=== PATIENT | male | born 1955 | race Caucasian/White ===

== ENCOUNTER → 2023-06-14 14:17 | Outpatient (REF) | payer MEDICARE, BC, SELFPAY | LOC: RAD 14:17 | PROVIDERS: ATTENDING PHYSICIAN Internal Medicine; FAMILY PHYSICIAN Family Medicine | DX: M25.50 Pain in unspecified joint (principal); M25.60 Stiffness of unspecified joint, not elsewhere classified | CPT/HCPCS: 73130; 73630 ==

== ENCOUNTER → 2023-07-27 14:30 | Outpatient (REF) | payer MEDICARE, BC, SELFPAY | LOC: MRI 3T 14:30 | PROVIDERS: ATTENDING PHYSICIAN Urology; FAMILY PHYSICIAN Family Medicine | DX: C61 Malignant neoplasm of prostate (principal) | CPT/HCPCS: 72197; A9575 ==

== ENCOUNTER → 2024-05-09 14:22 | Outpatient (REF) | payer MEDICARE, BC, SELFPAY | LOC: RAD 14:22 | DX: M79.662 Pain in left lower leg (principal) | CPT/HCPCS: 93970 ==

== ENCOUNTER → 2024-08-03 10:50 | Outpatient (REF) | payer MEDICARE, BC, SELFPAY | LOC: RAD 10:50 | PROVIDERS: ATTENDING PHYSICIAN Family Medicine; FAMILY PHYSICIAN Family Medicine | DX: R50.9 Fever, unspecified (principal) | CPT/HCPCS: 71046 ==

== ENCOUNTER → 2024-08-13 15:19 | Outpatient (REF) | payer MEDICARE, BC, SELFPAY ==
[2024-08-13 16:17] LABS: % Basophils 0.3 % (0-2); % Eosinophils 1.4 % (0-6); % Immature Granulocytes 0.3 % (0-0.5); % Lymphocytes 15.7 % (20.5-51.1); % Monocytes 8.5 % (1.7-9.3); % Neutrophils 73.8 % (42.2-75.2); Absolute Eosinophils 0.1 10^3/uL (0-0.7); Absolute Lymphocytes 1.4 10^3/uL (1.2-3.4); Absolute Monocytes 0.7 10^3/uL (0.1-0.6); Absolute Neutrophils 6.4 10^3/uL (1.4-6.5); Hematocrit 29.3 % (39.0-52.0); Hemoglobin 9.8 g/dL (13.0-18.0); Mean Corp Hgb Conc. 33.4 g/dL (33.0-37.0); Mean Corpuscular Hgb 29.9 pg (27.0-31.0); Mean Corpuscular Volume 89.3 fL (80.0-94.0); Mean Platelet Volume 9.8 fL (7.4-10.4); Nucleated Red Blood Cells % 0 % (-); Platelet Count 403 10^3/uL (130-400); Red Blood Cell Count 3.28 10^6/uL (4.70-6.10); White Blood Cell Count 8.6 10^3/uL (4.8-10.8)
[2024-08-13 16:33] LABS: ALT (SGPT) 20 U/L (0-50); AST (SGOT) 17 U/L (17-59); Albumin 3.4 g/dl (3.5-5.0); Alkaline Phosphatase 72 U/L (38-126); Blood Urea Nitrogen 32 mg/dl (9-20); Calcium 9.4 mg/dl (8.4-10.2); Carbon Dioxide 28 mmol/L (22-30); Chloride 107 mmol/L (98-107); Creatine Phosphokinase 73 U/L (55-170); Glucose 107 mg/dl (70-99); Potassium 4.3 mmol/L (3.5-5.1); Sodium 141 mmol/L (135-145); eGFR > 60.00
[2024-08-13 16:58] LABS: Vitamin D, 25-OH*** 44.5 ng/mL (30-80)
[2024-08-13 17:03] LABS: Erythrocyte Sed Rate 75 mm/hour (0-20)
[2024-08-13 17:11] LABS: TSH Reflex To Free T4 2.59 uIU/ml (0.47-4.68)
[2024-08-14 15:25] LABS: Lyme Antibody Screen, EIA Negative (Negative)
[2024-08-15 11:14] LABS: Rheumatoid Agglutinin Positive (<10 IU)
[2024-08-15 11:20] LABS: Rheumatoid Agg. Semi-quant 2048 IU
[2024-08-16 01:54] LABS: CCP Antibody IgG/IgA 5 Units (0-19)
[2024-08-16 02:06] LABS: ANA, IgG Reflex to HEp-2 None Detected (None Detected)
[2024-08-16 02:53] LABS: SSA 52 (Ro)(ENA) Ab, IgG 1 AU/mL (0-40); SSA 60 (Ro)(ENA) Ab, IgG 0 AU/mL (0-40); SSB (La)(ENA) Ab, IgG 0 AU/mL (0-40)
== END ==
LOC: REG 15:19
PROVIDERS: ATTENDING PHYSICIAN Family Medicine
DX: M25.50 Pain in unspecified joint (principal); M79.10 Myalgia, unspecified site; R53.83 Other fatigue; E55.9 Vitamin D deficiency, unspecified
CPT/HCPCS: 36415; 80053; 82306; 82550; 84443; 85025; 85652; 86038; 86140; 86200; 86235; 86430; 86431; 86618; 86747; 86780

== ENCOUNTER 2024-08-14 09:47 | Emergency (ER) | payer MEDICARE, BC, SELFPAY ==
[2024-08-14 09:49] VITALS: BP 135/79
[2024-08-14 10:45] VITALS: BMI 34.8
[2024-08-14 12:11] LABS: % Basophils 0.5 % (0-2); % Eosinophils 2.3 % (0-6); % Immature Granulocytes 0.4 % (0-0.5); % Lymphocytes 16.1 % (20.5-51.1); % Monocytes 9.3 % (1.7-9.3); % Neutrophils 71.4 % (42.2-75.2); Absolute Eosinophils 0.2 10^3/uL (0-0.7); Absolute Lymphocytes 1.2 10^3/uL (1.2-3.4); Absolute Monocytes 0.7 10^3/uL (0.1-0.6); Absolute Neutrophils 5.3 10^3/uL (1.4-6.5); Hematocrit 27.4 % (39.0-52.0); Hemoglobin 9.4 g/dL (13.0-18.0); Mean Corp Hgb Conc. 34.3 g/dL (33.0-37.0); Mean Corpuscular Hgb 30.4 pg (27.0-31.0); Mean Corpuscular Volume 88.7 fL (80.0-94.0); Mean Platelet Volume 9.9 fL (7.4-10.4); Nucleated Red Blood Cells % 0 % (-); Platelet Count 345 10^3/uL (130-400); Red Blood Cell Count 3.09 10^6/uL (4.70-6.10); Red Cell Dist. Width 11.2 % (11.5-14.5); White Blood Cell Count 7.4 10^3/uL (4.8-10.8)
[2024-08-14 12:19] LABS: Lactic Acid 0.8 mmol/L (0.7-2.0); Urine Albumin Negative (Neg - Trace); Urine Bilirubin Negative (Negative); Urine Character Clear (Clear); Urine Color Yellow; Urine Glucose Negative (Negative); Urine Ketone Negative (Negative); Urine Leukocyte Negative (Negative); Urine Nitrite Negative (Negative); Urine Occult Blood Negative (Negative); Urine Specific Gravity 1.015 (<1.030); Urine Urobilinogen Negative (Neg - 1+)
[2024-08-14 12:20] LABS: ALT (SGPT) 16 U/L (0-50); AST (SGOT) 16 U/L (17-59); Alkaline Phosphatase 63 U/L (38-126); Blood Urea Nitrogen 29 mg/dl (9-20); Carbon Dioxide 24 mmol/L (22-30); Chloride 109 mmol/L (98-107); Estimated Creatinine Clearance 88 ml/min; Glucose 106 mg/dl (70-99); Potassium 3.7 mmol/L (3.5-5.1); Sodium 140 mmol/L (135-145); Total Bilirubin 1.2 mg/dl (0.2-1.3); Total Protein 6.3 g/dl (6.3-8.2); eGFR > 60.00
--- NOTE | 2024-08-14 12:44 | ED.GENMED ---
History of Present Illness
General
Chief Complaint: Abnormal Lab Value
Time Seen by Provider: 08/14/24 10:46
History of Present Illness
History of Present Illness:
68-year-old male with history of hypertension, hyperlipidemia, prior history of prostate cancer presenting to the emergency department for concern of 2 weeks of fever. Patient has every day for the past 2 weeks he has had a low-grade temperature,
about 100. Also notes that he has had some pain in his upper extremity joints, however denies significant swelling or weakness. He does note a history of migraines and has had headaches as well, however denies any neck pain or visual changes. He
has been following with his primary care doctor check laboratory analysis as well as a Lyme screen. Lyme test was negative however ESR and CRP were checked, which were elevated yesterday. Patient denies any known sick contacts. He denies chest
pain or difficulty breathing, had outpatient negative chest x-ray. Denies any urinary symptoms, had outpatient negative urine test. Does note some constipation, but denies abdominal pain. Denies any recent travel out of the country. Denies
additional acute medical complaints
Past History
Past History
ED Past Medical History: HTN, Hypercholesterolemia and Other (Migraines)
ED Past Surgical History: Orthopedic and Tonsilectomy
Social History
Tobacco: Non-smoker
Alcohol: None
Drug: None
Personal:
Living: with family
Employment: Employed
Phy Exam
Physical Exam
Physical Exam:
General: Well-appearing, no clinical signs of dehydration, nontoxic and in no acute distress
HEENT: protecting airway
Neck: appears supple, no rigidity, no meningismus
CV: Normal heart rate, regular rhythm
Resp: No accessory muscle use, no increased work of breathing, lungs clear to auscultation bilaterally
Abd: Soft and non-distended, no tenderness to palpation
Extremities: No deformities, no swelling, no erythema. Prior evidence of left pneumothorax. No erythema or warmth. No pain with range of motion. No pain with any palpation
Neuro: alert, no focal neurologic deficit
: deferred
Rectal: deferred
Psych: Normal affect
Skin: Intact
Course
Orders/Labs/Results
Orders:
Orders
08/14/24 11:36
Complete Blood Count/With Diff Urgent
Comprehensive Metabolic Panel Urgent
Lactic Acid Urgent
Urinalysis Reflex To Culture Urgent
Date Specimen was Collected: 08/14/24
Time Specimen was Collected: 11:34
Blood Culture Q30M
[facility] Source: Blood/Venous
Specimen Description:
Blood Culture Q30M
[facility] Source: Blood/Venous
Specimen Description:
Abnormal Lab Results
08/14/24
11:36
RBC 3.09 L 10^6/uL
(4.70-6.10)
Hgb 9.4 L g/dL
(13.0-18.0)
Hct 27.4 L %
(39.0-52.0)
RDW 11.2 L %
(11.5-14.5)
Absolute Monos (auto) 0.7 H 10^3/uL
(0.1-0.6)
Lymphocytes % 16.1 L %
(20.5-51.1)
Chloride 109 H mmol/L
(98-107)
BUN 29 H mg/dl
(9-20)
Glucose 106 H mg/dl
(70-99)
AST 16 L U/L
(17-59)
Albumin 3.0 L g/dl
(3.5-5.0)
08/14/24 11:36
08/14/24 11:36
Vital Signs
Initial and Last Documented VS:
Initial Vital Signs
Temp Pulse Resp BP Pulse Ox
97.6 F 72 16 135/79 97
08/14/24 09:49 08/14/24 09:49 08/14/24 09:49 08/14/24 09:49 08/14/24 09:49
Last Documented Vital Signs
Temp Pulse Resp BP Pulse Ox
97.6 F 72 16 135/79 97
08/14/24 09:49 08/14/24 09:49 08/14/24 09:49 08/14/24 09:49 08/14/24 09:49
MDM/Problems Addressed
MDM/Problems Addressed:
68-year-old male presenting to the emergency department for fever for 2 days and elevated outpatient inflammatory markers. Vital signs are normal.
Patient is resting comfortably comfort. He is afebrile and nontoxic. No antipyretics prior to arrival. Unclear etiology of patient's fevers. However, patient has had sufficient outpatient workup, with negative viral swabs, negative chest x-ray,
negative urine, negative Lyme test. Only symptoms notable at this time is some joint pain, fatigue, and headache. Regarding joint pain, bilateral nature. No signs of infection to the left knee where prior knee replacement. No concern for septic
arthritis. Possible rheumatologic process such as polymyositis rheumatica, which may explain elevated inflammatory markers. Regarding headache, no present headache. No focal neurologic deficits. No meningismus or concern for meningitis. Will
repeat laboratory analysis and send blood culture as well as lactic acid. Will also repeat urinalysis.
12:50 - Patient's labs are unremarkable. No leukocytosis. Normal lactic acid. Mild anemia, however no indication for transfusion. No signs of bleeding. Urine without sign of infection. No urinary symptoms without concern for prostatitis or
UTI. At this time, unclear etiology of symptoms, however patient remains clinically stable. Ultimately feel stable for discharge with outpatient rheumatologic and primary care follow-up. Will follow-up on blood cultures. Strict return
precautions communicated to patient and patient verbalized understanding
*Critical Care Note
Total Time (30-74mins, 75-104mins- exclusive of procedures): Not Applicable
ED Attending Note
-
Portions of this chart may have been created with voice recognition software.� Occasional wrong word or��sound alike� substitutions may have occurred due to the inherent limitations of voice recognition software.
Discharge Plan
Departure
Patient Disposition: Home (Routine Discharge)
Date of Disposition: 08/14/24
Time of Disposition: 13:07
Patient with high blood pressure during this ER visit?: No
Condition: Good
Discharge Problem:
Fever of unknown origin, Joint pain in both hands
Prescriptions:
No Action
hydrocodone-acetaminophen [Vicodin HP] 10 MG/660 MG tablet
1 tab PO .Q4HPRN Qty: 20 0RF
Referrals:
Francis Cortez Jr., DO [Family Provider] -
Interventions
Interventions:
*Risk Screen - Suicide Last Done: 08/14/24 09:49
*General Assessment Last Done: 08/14/24 09:49
*Neglect/Abuse Screening Last Done: 08/14/24 10:45
*ED- Fall Risk Assessment Last Done: 08/14/24 10:45
*ED COVID-19 Vaccine History Last Done: 08/14/24 09:49
Discharge Date and Time
Print Language: CENTRAL AFRICAN
[2024-08-14 13:15] VITALS: BP 130/75
== END 2024-08-14 13:16 | disposition home or self-care (01) ==
LOC: EMR 09:47
PROVIDERS: EMERGENCY PHYSICIAN Student in an Organized Health Care Education/Training Program; FAMILY PHYSICIAN Family Medicine
DX: R50.9 Fever, unspecified (principal); M25.542 Pain in joints of left hand; M25.541 Pain in joints of right hand; I10 Essential (primary) hypertension; E78.00 Pure hypercholesterolemia, unspecified; Z85.46 Personal history of malignant neoplasm of prostate; Z96.652 Presence of left artificial knee joint
CPT/HCPCS: 99283; 80053; 81003; 83605; 85025; 87040